=== PATIENT | male | born 1965 | race Two or more races ===

== ENCOUNTER 2021-09-23 07:25 | Outpatient (CLI) | payer OTHER | END 2021-09-23 07:31 | disposition home or self-care (01) | LOC: TOM 07:25 | DX: Z12.11 Encounter for screening for malignant neoplasm of colon (principal) ==

== ENCOUNTER 2021-11-26 07:18 | Outpatient (CLI) | payer OTHER | END 2021-11-26 07:24 | disposition home or self-care (01) | LOC: SONOGRAMA 07:18 | DX: R10.13 Epigastric pain (principal) ==